=== PATIENT | male | born 1945 | race Caucasian/White ===

== ENCOUNTER → 2016-09-21 | Outpatient (CLI) | payer MEDICARE ==
[2016-09-21 10:57] LABS: ALT 26 U/L (21-72); AST 27 U/L (17-59); Alkaline Phosphatase 58 U/L (38-126); Anion Gap 8 mmol/L; Blood Urea Nitrogen 17 mg/dL (9-20); Calcium 9.4 mg/dL (8.4-10.2); Carbon Dioxide 31 mmol/L (22-30); Chloride 99 mmol/L (98-107); Cholesterol 179 mg/dL (<200); Glucose 89 mg/dL (74-99); HDL Cholesterol 67 mg/dL (40-60); Non-African American GFR(MDRD) >60 (>60 ml/min/1.73 sqM); Potassium 4.2 mmol/L (3.5-5.1); Sodium 138 mmol/L (137-145); Total Bilirubin 0.9 mg/dL (0.2-1.3); Total Protein 7.3 g/dL (6.3-8.2); Triglycerides 78 mg/dL (<150)
== END | disposition home or self-care (01) ==
LOC: LABWHC1 09:21
PROVIDERS: ATTEND Internal Medicine Interventional Cardiology
DX: E78.5 Hyperlipidemia, unspecified (principal); E55.9 Vitamin D deficiency, unspecified
CPT/HCPCS: 36415; 80053; 80061; 82306; 84443

== ENCOUNTER → 2017-07-03 | Outpatient (CLI) | payer MEDICARE ==
--- NOTE | 2017-07-03 12:16 | XR ---
EXAMINATION TYPE: XR chest 2V DATE OF EXAM: 07/03/2017 COMPARISON: Chest x-ray July 01, 2014 HISTORY: Cough for 2 weeks. TECHNIQUE: Frontal and lateral views of the chest are obtained. FINDINGS: There is chronic minimal change with small stable calcified right lower lobe nodule or gra nuloma. There is no focal air space opacity, pleural effusion, or pneumothorax seen. The cardiac eric houette size is within normal limits with atherosclerotic change in aortic knob. There is old fractur e left anterolateral fourth and fifth ribs redemonstrated. IMPRESSION: Chronic changes without suspicious acute pulmonary process.
== END | disposition home or self-care (01) ==
LOC: RADXRYALE 11:57
PROVIDERS: ATTEND Physician Assistant Medical
DX: R05 Cough (principal)
CPT/HCPCS: 71046

== ENCOUNTER 2017-11-17 09:48 | Emergency (ER) | payer MEDICARE ==
[2017-11-17 09:57] VITALS: TEMP 97.7
--- NOTE | 2017-11-17 10:06 | ED ---
General Adult HPI - General Chief complaint: Back Pain/Injury Stated complaint: Back/Chest Pain Time Seen by Provider: 11/17/17 09:50 Source: patient, EMS, RN notes reviewed Mode of arrival: EMS Limitations: no limitations - History of Present Illness Initial comments: This is a 71-year-old male presents emergency Department with no significant past medical history. Patient comes in because since Sunday he's been having some left trapezius and shoulder pain and he states it was constant. Patient states after that he started having pain from the bases neck down through the middle of his back between his shoulder blades. Patient denies any chest pain. Patient states after he took an aspirin yesterday at about 9:00 last night he has had no pain since. Patient went to urgent care and urgent care got blood pressures bilaterally that were not equal and so they were concerned for aortic aneurysm and sent to the emergency department. Patient denies any recent fever chills or cough. Patient denies any headache patient denies numbness weakness. Patient denies lightheadedness dizziness or near syncopal episode. Patient denies any abdominal pain patient denies nausea vomiting diarrhea - Related Data Home Medications Medication Instructions Recorded Confirmed Ascorbic Acid [Vitamin C] 500 mg PO DAILY 11/17/17 11/17/17 Aspirin EC [Ecotrin] 325 mg PO HS 11/17/17 11/17/17 Garlic 1 tab PO DAILY 11/17/17 11/17/17 Lecithin, Soy [Lecithin] 400 mg PO DAILY 11/17/17 11/17/17 Multivitamins, Thera [Multivitamin 1 tab PO DAILY 11/17/17 11/17/17 (formulary)] Vitamin B Complex 1 cap PO DAILY 11/17/17 11/17/17 Vitamin E 100 unit PO DAILY 11/17/17 11/17/17 Allergies Allergy/AdvReac Type Severity Reaction Status Date / Time Penicillins Allergy Unknown Verified 11/17/17 12:04 Sulfa (Sulfonamide Allergy Unknown Verified 11/17/17 12:04 Antibiotics) Review of Systems ROS Statement: Those systems with pertinent positive or pertinent negative responses have been documented in the HPI. ROS Other: All systems not noted in ROS Statement are negative. Past Medical History Past Medical History: No Reported History History of Any Multi-Drug Resistant Organisms: None Reported Past Surgical History: No Surgical Hx Reported Past Psychological History: No Psychological Hx Reported Smoking Status: Never smoker Past Alcohol Use History: None Reported Past Drug Use History: None Reported General Exam - General Exam Comments Initial Comments: GENERAL: Patient is well-developed and well-nourished. Patient is nontoxic and well- hydrated and is in no acute distress. ENT: Neck is soft and supple. No significant lymphadenopathy is noted. Oropharynx is clear. Moist mucous membranes. Neck has full range of motion without eliciting any pain. EYES: The sclera were anicteric and conjunctiva were pink and moist. Extraocular movements were intact and pupils were equal round and reactive to light. Eyelids were unremarkable. PULMONARY: Unlabored respirations. Good breath sounds bilaterally. No audible rales rhonchi or wheezing was noted. CARDIOVASCULAR: There is a regular rate and rhythm without any murmurs gallops or rubs. ABDOMEN: Soft and nontender with normal bowel sounds. No palpable organomegaly was noted. There is no palpable pulsatile mass. SKIN: Skin is clear with no lesions or rashes and otherwise unremarkable. NEUROLOGIC: Patient is alert and oriented x3. Cranial nerves II through XII are grossly intact. Motor and sensory are also intact. Normal speech, volume and content. Symmetrical smile. MUSCULOSKELETAL: Normal extremities with adequate strength and full range of motion. No lower extremity swelling or edema. No calf tenderness. LYMPHATICS: No significant lymphadenopathy is noted PSYCHIATRIC: Normal psychiatric evaluation. Normal interpersonal interactions appears functionally intact in deals appropriately with others. No signs of depression. No signs of anxiety. Limitations: no limitations Course Vital Signs 11/17/17 11/17/17 11/17/17 09:50 10:30 11:00 Temperature 97.7 F Pulse Rate 53 L 58 L 51 L Respiratory 20 20 20 Rate Blood Pressure 157/94 155/76 152/77 O2 Sat by Pulse 100 98 98 Oximetry Medical Decision Making - Medical Decision Making We did blood pressures bilaterally as did EMS and blood pressures were equal bilaterally. EKG shows sinus bradycardia 54 bpm AR interval 138 QRS is 96 Q-T intervals 444 QTC is 421 per patient's EKG shows no ST segment elevation or depression or T wave abnormalities are noted. Patient was asymptomatic throughout his ED stay. Patient never had chest pain all week or throughout his visit here. - Lab Data Result diagrams: 11/17/17 10:00 11/17/17 10:00 Lab Results 0611/17/17 11/17/17 Range/Units 10:00 10:00 10:00 WBC 6.2 (3.8-10.6) k/uL RBC 4.82 (4.30-5.90) m/uL Hgb 13.8 (13.0-17.5) gm/dL Hct 41.1 (39.0-53.0) % MCV 85.3 (80.0-100.0) fL MCH 28.7 (25.0-35.0) pg MCHC 33.6 (31.0-37.0) g/dL RDW 13.4 (11.5-15.5) % Plt Count 223 (150-450) k/uL Neutrophils % 65 % Lymphocytes % 26 % Monocytes % 5 % Eosinophils % 2 % Basophils % 1 % Neutrophils # 4.0 (1.3-7.7) k/uL Lymphocytes # 1.6 (1.0-4.8) k/uL Monocytes # 0.3 (0-1.0) k/uL Eosinophils # 0.1 (0-0.7) k/uL Basophils # 0.0 (0-0.2) k/uL PT (9.0-12.0) sec INR (<1.2) APTT (22.0-30.0) sec Sodium 137 (137-145) mmol/L Potassium 4.3 (3.5-5.1) mmol/L Chloride 98 (98-107) mmol/L Carbon Dioxide 29 (22-30) mmol/L Anion Gap 10 mmol/L BUN 15 (9-20) mg/dL Creatinine 0.77 (0.66-1.25) mg/dL Est GFR (CKD-EPI)AfAm >90 (>60 ml/min/1.73 sqM) Est GFR (CKD-EPI)NonAf >90 (>60 ml/min/1.73 sqM) Glucose 96 (74-99) mg/dL Calcium 9.2 (8.4-10.2) mg/dL Magnesium 2.0 (1.6-2.3) mg/dL Total Bilirubin 0.5 (0.2-1.3) mg/dL AST 31 (17-59) U/L ALT 29 (21-72) U/L Alkaline Phosphatase 55 (38-126) U/L Total Creatine Kinase 89 (55-170) U/L CK-MB (CK-2) 1.4 (0.0-2.4) ng/mL CK-MB (CK-2) Rel Index 1.6 Troponin I <0.012 (0.000-0.034) ng/mL Total Protein 6.4 (6.3-8.2) g/dL Albumin 4.1 (3.5-5.0) g/dL 11/17/17 Range/Units 10:00 WBC (3.8-10.6) k/uL RBC (4.30-5.90) m/uL Hgb (13.0-17.5) gm/dL Hct (39.0-53.0) % MCV (80.0-100.0) fL MCH (25.0-35.0) pg MCHC (31.0-37.0) g/dL RDW (11.5-15.5) % Plt Count (150-450) k/uL Neutrophils % % Lymphocytes % % Monocytes % % Eosinophils % % Basophils % % Neutrophils # (1.3-7.7) k/uL Lymphocytes # (1.0-4.8) k/uL Monocytes # (0-1.0) k/uL Eosinophils # (0-0.7) k/uL Basophils # (0-0.2) k/uL PT 10.1 (9.0-12.0) sec INR 1.0 (<1.2) APTT 24.9 (22.0-30.0) sec Sodium (137-145) mmol/L Potassium (3.5-5.1) mmol/L Chloride (98-107) mmol/L Carbon Dioxide (22-30) mmol/L Anion Gap mmol/L BUN (9-20) mg/dL Creatinine (0.66-1.25) mg/dL Est GFR (CKD-EPI)AfAm (>60 ml/min/1.73 sqM) Est GFR (CKD-EPI)NonAf (>60 ml/min/1.73 sqM) Glucose (74-99) mg/dL Calcium (8.4-10.2) mg/dL Magnesium (1.6-2.3) mg/dL Total Bilirubin (0.2-1.3) mg/dL AST (17-59) U/L ALT (21-72) U/L Alkaline Phosphatase (38-126) U/L Total Creatine Kinase (55-170) U/L CK-MB (CK-2) (0.0-2.4) ng/mL CK-MB (CK-2) Rel Index Troponin I (0.000-0.034) ng/mL Total Protein (6.3-8.2) g/dL Albumin (3.5-5.0) g/dL Disposition Clinical Impression: Thoracic back pain Disposition: HOME SELF-CARE Condition: Good Instructions: Acute Low Back Pain (ED) Is patient prescribed a controlled substance at d/c from ED?: No Referrals: Oscar Harper DO [Primary Care Provider] - 1-2 days Time of Disposition: 12:15
[2017-11-17 10:16] LABS: Basophils % (A) 1 %; Eosinophils # (A) 0.1 k/uL (0-0.7); Eosinophils % (A) 2 %; HCT 41.1 % (39.0-53.0); HGB 13.8 gm/dL (13.0-17.5); Lymphocytes # (A) 1.6 k/uL (1.0-4.8); Lymphocytes % (A) 26 %; MCH 28.7 pg (25.0-35.0); MCHC 33.6 g/dL (31.0-37.0); MCV 85.3 fL (80.0-100.0); Mean Platelet Volume 6.9; Monocytes # (A) 0.3 k/uL (0-1.0); Monocytes % (A) 5 %; Neutrophils % (A) 65 %; Platelet Count 223 k/uL (150-450); RBC 4.82 m/uL (4.30-5.90); RDW 13.4 % (11.5-15.5); WBC 6.2 k/uL (3.8-10.6)
[2017-11-17 10:28] LABS: ALT 29 U/L (21-72); AST 31 U/L (17-59); Albumin 4.1 g/dL (3.5-5.0); Alkaline Phosphatase 55 U/L (38-126); Anion Gap 10 mmol/L; Blood Urea Nitrogen 15 mg/dL (9-20); Calcium 9.2 mg/dL (8.4-10.2); Carbon Dioxide 29 mmol/L (22-30); Chloride 98 mmol/L (98-107); Glucose 96 mg/dL (74-99); Potassium 4.3 mmol/L (3.5-5.1); Sodium 137 mmol/L (137-145); Total Bilirubin 0.5 mg/dL (0.2-1.3); Total Protein 6.4 g/dL (6.3-8.2)
[2017-11-17 10:29] LABS: Partial Thromboplastin Time 24.9 sec (22.0-30.0); Prothrombin Time 10.1 sec (9.0-12.0)
[2017-11-17 10:49] LABS: Creatine Kinase 89 U/L (55-170)
[2017-11-17 11:02] LABS: Creatine Kinase MB 1.4 ng/mL (0.0-2.4); Troponin I <0.012 ng/mL (0.000-0.034)
--- NOTE | 2017-11-17 11:34 | CT ---
EXAMINATION TYPE: CT angio thor/abd pel aorta DATE OF EXAM: 11/17/2017 COMPARISON: NONE HISTORY: Upper back pain, radiating down Lt arm CT DLP: 1171.6 mGycm. Automated Exposure Control for Dose Reduction was Utilized. CONTRAST: CT scan of the thorax, abdomen and pelvis is performed without and with IV Contrast, patient injected with 100 mL of Isovue 370. Three-dimensional reconstructions performed on an alternate workstation. FINDINGS: LUNGS: The lungs are grossly clear, there is no concerning parenchymal mass or nodule identified. Ca lcified nodule present in the right lower lobe, calcified right hilar, mediastinal nodes are present. There is no pleural effusion or pneumothorax seen. The tracheobronchial tree is patent. MEDIASTINUM: There are no greater than 1 cm hilar or mediastinal lymph nodes. No pericardial effusi on is seen. Aorta shows no luminal filling defect to suggest embolism or dissection, there is a normal caliber. L IVER/GB: No significant abnormality is appreciated. PANCREAS: No significant abnormality is seen. SPLEEN: Calcifications compatible with old granulomatous disease. ADRENALS: No significant abnormality is seen. KIDNEYS: No significant abnormality is seen. BOWEL: No significant abnormality is seen. GENITAL ORGANS: No gross abnormality seen. LYMPH NODES: No greater than 1cm abdominal or pelvic lymph nodes are appreciated. OSSEOUS STRUCTURES: Degenerative disc changes in the lumbar spine. OTHER: No significant additional a bnormality is seen. IMPRESSION: Normal aorta
[2017-11-17 12:26] VITALS: BP 155/91; PULSE 56; RESP 18
== END 2017-11-17 12:25 | disposition home or self-care (01) ==
LOC: EC 09:48
DX: M54.6 Pain in thoracic spine (principal); R00.1 Bradycardia, unspecified; Z79.82 Long term (current) use of aspirin; Z79.899 Other long term (current) drug therapy; Z88.0 Allergy status to penicillin; Z88.2 Allergy status to sulfonamides
CPT/HCPCS: 36415; 93005; 80053; 82550; 82553; 83735; 84484; 85025; 85610; 85730; 71275; 74174; 99284; Q9967

== ENCOUNTER → 2018-06-25 | Outpatient (CLI) | payer MEDICARE | END | disposition home or self-care (01) | LOC: RADUSWWP 11:47 | PROVIDERS: ATTEND Family Medicine | DX: T33.832A Superficial frostbite of left toe(s), initial encounter (principal); R09.89 Other specified symptoms and signs involving the circulatory and respiratory systems | CPT/HCPCS: 93923 ==

== ENCOUNTER → 2018-07-05 | Outpatient (CLI) | payer MEDICARE ==
[2018-07-05 18:04] LABS: ALT 29 U/L (10-49); AST 29 U/L (14-35); Albumin/Globulin Ratio 2.39 (1.60-3.17); Alkaline Phosphatase 61 U/L (41-126); Calcium 9.1 mg/dL (8.7-10.3); Carbon Dioxide 29.7 mmol/L (21.6-31.8); Chloride 104 mmol/L (96-109); Cholesterol 137 mg/dL (0-200); Globulin 1.8 g/dL (1.6-3.3); Glucose 89 mg/dL (70-110); Potassium 4.1 mmol/L (3.5-5.5); Sodium 140 mmol/L (135-145); Total Bilirubin 0.7 mg/dL (0.2-1.2); Total Protein 6.1 g/dL (6.2-8.2); Triglycerides <50.0 mg/dL (0.0-149.0); VLDL Calculation 9.98 mg/dL (5.00-40.00)
== END | disposition home or self-care (01) ==
LOC: LABWHC1 10:30
PROVIDERS: ATTEND Internal Medicine Clinical Cardiac Electrophysiology
DX: E78.5 Hyperlipidemia, unspecified (principal); R07.9 Chest pain, unspecified; R53.83 Other fatigue
CPT/HCPCS: 36415; 80053; 80061; 84443

== ENCOUNTER → 2018-09-26 | Outpatient (CLI) | payer MEDICARE ==
--- NOTE | 2018-09-26 09:50 | XR ---
EXAMINATION TYPE: XR lumbosacral spine min 4V DATE OF EXAM: 09/26/2018 CLINICAL HISTORY: Chronic low back pain. TECHNIQUE: Frontal, lateral, and oblique images of the lumbar spine are obtained. COMPARISON: CTA aorta November 17, 2017 FINDINGS: There are 5 lumbar type vertebral bodies redemonstrated. The lumbar spine shows persistent levoconvex scoliosis centered at L3 level without evidence of acute fracture or dislocation. Vertebr al body heights remain within normal limits. There is persistent grade 1 retrolisthesis L3 on L4. Th ere is moderate disc space narrowing with vacuum disc phenomenon L3-L4 level redemonstrated. There is moderate disc space narrowing with vacuum disc phenomenon L5-S1 level. Prominent disc space S1-S2 le indigo is again seen. The oblique images appear within normal limits. Facet arthropathy lower lumbar sp ine is present. The overlying soft tissue appears unremarkable. IMPRESSION: As above. No significant change from 2018 CT.
== END ==
LOC: RADXRYALE 09:05
PROVIDERS: ATTEND Physician Assistant Medical
DX: M99.73 Connective tissue and disc stenosis of intervertebral foramina of lumbar region (principal); M99.74 Connective tissue and disc stenosis of intervertebral foramina of sacral region; M43.16 Spondylolisthesis, lumbar region; M46.96 Unspecified inflammatory spondylopathy, lumbar region; M41.86 Other forms of scoliosis, lumbar region
CPT/HCPCS: 72110

== ENCOUNTER 2019-07-10 08:33 | Day surgery (SDC) | payer MEDICARE ==
[2019-07-08 08:24] VITALS: BMI 26.0
[~2019-07-10 08:33] MED LIST: LACTATED RINGERS 1,000 ML IV SCH; LIDOCAINE 1% 20 ML VIAL (10MG/ML) FOR IV START INTRADERMA PRN
[2019-07-10 08:58] VITALS: RESP 16; TEMP 97.2
[2019-07-10] MEDS ORDERED: PROPOFOL 10 MG/ML 20 ML VIAL IV ONE (09:27)
[2019-07-10] MEDS ORDERED: LIDOCAINE 1% INJ 10MG/ML (20 ML MDV) ONE (09:27)
--- NOTE | 2019-07-10 10:21 | P.PCN ---
Date of Procedure: 07/10/19 Description of Procedure: BRIEF HISTORY: Patient is a pleasant 73-year-old male who presents for outpatient colonoscopy for screening for malignant neoplasm colon. Last colonoscopy approximately 10 years ago. Denies any change in bowel habits, blood per rectum or family history of colon cancer. PROCEDURE PERFORMED: Colonoscopy incomplete/aborted. PREOPERATIVE DIAGNOSIS: Screening for malignant neoplasm of the colon, last colonoscopy 10 years ago. ESTIMATED BLOOD LOSS: Minimal. IV sedation per Anesthesia. PROCEDURE: After informed consent was obtained, the patient, was brought into the endoscopy unit. IV sedation was administered by Anesthesia under continuous monitoring. Digital rectal examination was normal. Initially the Olympus CF-190 flexible video colonoscope was then inserted in the rectum, gradually advanced to the hepatic flexure. Prep for the colonoscopy was excellent. The patient however has a very dilated and redundant colon with significant looping of the endoscope. Multiple techniques were used to try to complete the colonoscopy including external pressure, stiffening of the endoscope, repositioning the patient in a supine position however these were unsuccessful. Mucosa of the transverse colon, descending colon, sigmoid colon and rectum did appear normal. Retroflexion was performed in the rectum and no lesions were seen. The patient tolerated the procedure well. IMPRESSION: Normal-appearing colon from the rectum to the hepatic flexure. Redundant, dilated colon prohibiting completion of the colonoscopy. RECOMMENDATIONS: Findings of this examination were discussed with the patient and his . Okay to resume diet. Okay to resume medications. Would recommend x-ray abdomen with barium enema for visualization of the right colon.
[2019-07-10 10:35] VITALS: BP 119/55; PULSE 75
== END 2019-07-10 10:52 | disposition home or self-care (01) ==
LOC: ORWHC2ENDO 08:33
PROVIDERS: ATTEND Internal Medicine
DX: Z12.11 Encounter for screening for malignant neoplasm of colon (principal); Q43.8 Other specified congenital malformations of intestine; Z53.8 Procedure and treatment not carried out for other reasons; Z79.82 Long term (current) use of aspirin; Z88.0 Allergy status to penicillin; Z88.2 Allergy status to sulfonamides
CPT/HCPCS: J2001; J2704; G0121; 45378

== ENCOUNTER → 2019-07-29 | Outpatient (CLI) | payer MEDICARE ==
--- NOTE | 2019-07-29 12:19 | FL ---
EXAMINATION TYPE: FL barium enema DATE OF EXAM: 07/29/2019 COMPARISON: NONE HISTORY: Incomplete colonoscopy at an outside facility approximately 2 weeks ago. TECHNIQUE: A single contrast barium enema study is performed. 1 minute and 30 seconds of fluoroscopy was utilized with 56 images saved. FINDINGS: Practical Nurse Clinical Coordinator view of the abdomen shows overall non-obstructive bowel gas pattern. Mild dextroscol iosis and moderate degenerative changes of the lumbar spine. No evidence of any mass or polyp, obstructing or constricting lesion throughout the colon. No signif icant diverticular disease is noted. Appendix was filled and appeared normal. The terminal ileum was refluxed and appears within normal l imits. IMPRESSION: Unremarkable barium enema study.
== END | disposition home or self-care (01) ==
LOC: RADFLMAIN 09:24
PROVIDERS: ATTEND Physician Assistant Medical
DX: R93.3 Abnormal findings on diagnostic imaging of other parts of digestive tract (principal)
CPT/HCPCS: 74270

== ENCOUNTER → 2021-02-21 | Outpatient (CLI) | payer MEDICARE ==
--- NOTE | 2021-02-21 12:18 | XR ---
EXAMINATION TYPE: XR wrist complete 3 views LT, XR knee complete 3 views LT DATE OF EXAM: 02/21/2021 COMPARISON: NONE HISTORY: 75-year-old male [id number] LT WRIST PAIN,LT KNEE PAIN FINDINGS: Left wrist: Moderate degenerative joint space narrowing and marginal spurring with subchondral sclerosis of the f irst CMC joint. The radiocarpal and distal radioulnar joint as well as the midcarpal compartment appe ar intact. No acute fracture, subluxation, or dislocation seen. There are submillimeter focus of exte rnal artifact or retained metallic foreign body debris along the radial aspect of the proximal second finger. Left knee: There is tricompartmental degenerative spurring. Weightbearing view could better assess the degree of cartilage and joint space loss. Suspect a small 4 mm loose body in the suprapatellar pouch. Extensor mechanism appears intact. Small knee joint effusion likely reactive. No acute fracture, subluxation, or dislocation seen. IMPRESSION: Left wrist: 1. Moderate OA at the basal joint of the thumb. 2. A 2 mm focus of either external artifact versus retained metallic foreign body material within the radial sided soft tissues of the proximal index finger. 3 No acute osseous abnormality seen. Left knee: 4. Tricompartmental osteoarthrosis. A weightbearing view could better assess the degree of cartilage and joint space narrowing. 5. No acute osseous abnormality seen.
== END | disposition home or self-care (01) ==
LOC: RADXRYALE 09:25
PROVIDERS: ATTEND Physician Assistant Medical
DX: M19.042 Primary osteoarthritis, left hand (principal); M17.12 Unilateral primary osteoarthritis, left knee

== ENCOUNTER 2021-07-12 23:46 | Emergency (ER) | payer MEDICARE ==
[2021-07-12 23:59] VITALS: BP 152/82; PULSE 50; RESP 18; TEMP 97.8
--- NOTE | 2021-07-13 00:36 | ED ---
General Adult HPI - General Chief complaint: Extremity Problem,Nontraumatic Stated complaint: Lt Leg Pain Time Seen by Provider: 07/13/21 00:05 Source: patient, RN notes reviewed Mode of arrival: ambulatory - History of Present Illness Initial comments: 75-year-old male presents to the emergency department for evaluation of left calf pain, onset 3 days prior to arrival. 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 Patient states the pain is worsened when walking and when his foot is in a flexed position. He describes the pain as intense, sharp, and cramping. States pain is alleviated with rest several hours after its onset. He takes aspirin daily. Denies fever, chills, chest pain, shortness of breath, difficulty breathing, nausea, vomiting, diarrhea, injury, and lower extremity swelling. - Related Data Home Medications Medication Instructions Recorded Confirmed Multivitamins, Thera [Multivitamin 1 tab PO DAILY 11/17/17 07/10/19 (formulary)] Aspirin [Adult Low Dose Aspirin EC] 81 mg PO DAILY 07/08/19 07/10/19 methylPREDNISolone [Medrol Dose 4 mg PO DIRECTED 07/08/19 07/10/19 Pack] Allergies Allergy/AdvReac Type Severity Reaction Status Date / Time Penicillins Allergy Unknown Verified 07/12/21 23:59 Childhood Sulfa (Sulfonamide Allergy Unknown Verified 07/12/21 23:59 Antibiotics) Childhood Review of Systems ROS Statement: Those systems with pertinent positive or pertinent negative responses have been documented in the HPI. ROS Other: All systems not noted in ROS Statement are negative. Past Medical History Past Medical History: GERD/Reflux, Osteoarthritis (OA) Additional Past Medical History / Comment(s): recent steroids for "back issues", History of Any Multi-Drug Resistant Organisms: None Reported Past Surgical History: No Surgical Hx Reported Additional Past Surgical History / Comment(s): colonoscopy, Past Anesthesia/Blood Transfusion Reactions: No Reported Reaction Past Psychological History: No Psychological Hx Reported Smoking Status: Never smoker Past Alcohol Use History: Rare Past Drug Use History: None Reported - Past Family History Mother Family Medical History: No Reported History General Exam Limitations: no limitations (Well-developed, well-nourished male in no acute distress. Temperature 97.8, pulse 50, respirations 18, blood pressure 152/82, pulse ox 98% on room air.) General appearance: alert, in no apparent distress Neck exam: Present: normal inspection, full ROM. Absent: tenderness, lymphadenopathy Respiratory exam: Present: normal lung sounds bilaterally. Absent: respiratory distress, wheezes, rales, rhonchi, stridor Cardiovascular Exam: Present: bradycardia (Patient reports heart rate is normal ly 50-65.), normal heart sounds GI/Abdominal exam: Present: soft, normal bowel sounds. Absent: distended, tenderness, guarding, rebound, rigid Left Upper Leg exam: Present: normal inspection, full ROM. Absent: tenderness, swelling Knee exam: Present: normal inspection, full ROM. Absent: tenderness, swelling, deformity Lower Leg exam: Present: normal inspection (symptoms have resolved but describes +rose's sign during episodes of pain), full ROM. Absent: tenderness, swelling, erythema, Homans' sign Ankle exam: Present: normal inspection, full ROM. Absent: tenderness, swelling Foot/Toe exam: Present: normal inspection, full ROM. Absent: tenderness, swelling Neurovascular tendon exam: Present: no vascular compromise. Absent: pulse deficit, abnormal cap refill, motor deficit, sensory deficit, pallor Right Upper Leg exam: Present: normal inspection, full ROM. Absent: tenderness, swelling Knee exam: Present: normal inspection, full ROM. Absent: tenderness, swelling, deformity Lower Leg exam: Present: normal inspection (bilateral lower extremities symmetrical), full ROM. Absent: tenderness, swelling, erythema, Homans' sign Ankle exam: Present: normal inspection, full ROM Foot/Toe exam: Present: normal inspection, full ROM Neurovascular tendon exam: Present: no vascular compromise. Absent: pulse deficit, abnormal cap refill, motor deficit, sensory deficit, pallor Neurological exam: Present: alert, oriented X3, CN II-XII intact Psychiatric exam: Present: normal affect, normal mood Skin exam: Present: warm, dry, intact, normal color. Absent: rash Course Vital Signs 07/12/21 23:56 Temperature 97.8 F Pulse Rate 50 L Respiratory 18 Rate Blood Pressure 152/82 O2 Sat by Pulse 98 Oximetry Medical Decision Making - Medical Decision Making 75-year-old male with no significant past medical history presents to the emergency department for evaluation of left calf pain. Upon exam, patient is well-appearing and in no acute distress. He is not experiencing any chest pain or shortness of breath. Lower extremities are symmetrical; no edema or erythema present. Neurovascular status is intact. Negative Homans sign. Patient is not having any discomfort at this time. Doppler study was negative for DVT. Laboratory studies were reviewed and are unremarkable. Discussed that this is likely muscle pain related to hours of work. Encouraged gentle range of motion and stretching. Suggested alternating ice and heat. Recommended Tylenol or Motrin for discomfort if needed. Follow-up care was reviewed patient in spouse. Questions answered they verbalize understanding and agree with this plan. Return parameters were discussed in detail. This patient's care was discussed with my attending . - Lab Data Result diagrams: 07/13/21 01:00 07/13/21 01:00 Lab Results 07/13/21 07/13/21 07/13/21 Range/Units 01:00 01:00 01:00 WBC 7.6 (3.8-10.6) k/uL RBC 4.66 (4.30-5.90) m/uL Hgb 13.8 (13.0-17.5) gm/dL Hct 41.4 (39.0-53.0) % MCV 88.9 (80.0-100.0) fL MCH 29.6 (25.0-35.0) pg MCHC 33.3 (31.0-37.0) g/dL RDW 12.9 (11.5-15.5) % Plt Count 195 (150-450) k/uL MPV 7.7 Neutrophils % 56 % Lymphocytes % 33 % Monocytes % 6 % Eosinophils % 3 % Basophils % 1 % Neutrophils # 4.2 (1.3-7.7) k/uL Lymphocytes # 2.5 (1.0-4.8) k/uL Monocytes # 0.4 (0-1.0) k/uL Eosinophils # 0.2 (0-0.7) k/uL Basophils # 0.1 (0-0.2) k/uL D-Dimer 0.29 (<0.60) mg/L FEU Sodium 135 L (137-145) mmol/L Potassium 4.2 (3.5-5.1) mmol/L Chloride 102 (98-107) mmol/L Carbon Dioxide 27 (22-30) mmol/L Anion Gap 6 mmol/L BUN 21 H (9-20) mg/dL Creatinine 0.94 (0.66-1.25) mg/dL Est GFR (CKD-EPI)AfAm >90 (>60 ml/min/1.73 sqM) Est GFR (CKD-EPI)NonAf 79 (>60 ml/min/1.73 sqM) Glucose 92 (74-99) mg/dL Calcium 8.8 (8.4-10.2) mg/dL Total Bilirubin 0.5 (0.2-1.3) mg/dL AST 26 (17-59) U/L ALT 17 (4-49) U/L Alkaline Phosphatase 57 (38-126) U/L Total Protein 6.8 (6.3-8.2) g/dL Albumin 4.0 (3.5-5.0) g/dL - Radiology Data Radiology results: report reviewed Venous Doppler study of the left lower extremity was obtained. Report was reviewed in its entirety. Impression per Dr. cierra Mg is left leg negative for DVT. Disposition Clinical Impression: Pain of left calf Disposition: HOME SELF-CARE Condition: Stable Instructions (If sedation given, give patient instructions): Leg Pain (ED) Additional Instructions: Gentle stretching of affected extremity. Alternate heat and ice as needed. May take motrin or tylenol for pain. Follow up with your PCP for a recheck this week. Return to the Emergency Department with any new, worsening, or concerning symptoms. Is patient prescribed a controlled substance at d/c from ED?: No Referrals: Oscar Harper DO [Primary Care Provider] - 1-2 days
[2021-07-13 01:08] LABS: Basophils # (A) 0.1 k/uL (0-0.2); Basophils % (A) 1 %; Eosinophils # (A) 0.2 k/uL (0-0.7); Eosinophils % (A) 3 %; HCT 41.4 % (39.0-53.0); HGB 13.8 gm/dL (13.0-17.5); Lymphocytes # (A) 2.5 k/uL (1.0-4.8); Lymphocytes % (A) 33 %; MCH 29.6 pg (25.0-35.0); MCHC 33.3 g/dL (31.0-37.0); MCV 88.9 fL (80.0-100.0); Mean Platelet Volume 7.7; Monocytes # (A) 0.4 k/uL (0-1.0); Monocytes % (A) 6 %; Neutrophils # (A) 4.2 k/uL (1.3-7.7); Neutrophils % (A) 56 %; Platelet Count 195 k/uL (150-450); RBC 4.66 m/uL (4.30-5.90); RDW 12.9 % (11.5-15.5); WBC 7.6 k/uL (3.8-10.6)
[2021-07-13 01:20] LABS: ALT 17 U/L (4-49); AST 26 U/L (17-59); African American GFR (CKD) >90 (>60 ml/min/1.73 sqM); Alkaline Phosphatase 57 U/L (38-126); Anion Gap 6 mmol/L; Blood Urea Nitrogen 21 mg/dL (9-20); Calcium 8.8 mg/dL (8.4-10.2); Carbon Dioxide 27 mmol/L (22-30); Chloride 102 mmol/L (98-107); Glucose 92 mg/dL (74-99); Non-African American GFR(CKD) 79 (>60 ml/min/1.73 sqM); Potassium 4.2 mmol/L (3.5-5.1); Sodium 135 mmol/L (137-145); Total Bilirubin 0.5 mg/dL (0.2-1.3); Total Protein 6.8 g/dL (6.3-8.2)
--- NOTE | 2021-07-13 01:22 | US ---
EXAMINATION TYPE: US venous doppler duplex LE LT DATE OF EXAM: 07/13/2021 1:00 AM COMPARISON: 2015 CLINICAL HISTORY: LLE pain. Patient complains of left calf cramps for 3 days; states they only happen in the afternoon after long hours of work. Patient states he takes aspirin daily. SIDE PERFORMED: Left TECHNIQUE: The lower extremity deep venous system is examined utilizing real time linear array sonog mary with graded compression, doppler sonography and color-flow sonography. VESSELS IMAGED: Common Femoral Vein Deep Femoral Vein Greater Saphenous Vein * Femoral Vein Popliteal Vein Small Saphenous Vein * Proximal Calf Veins (* superficial vessels) PTV's Peroneals Left Leg: Negative for DVT IMPRESSION: No evidence of deep vein thrombosis in the left leg
== END 2021-07-13 02:09 | disposition home or self-care (01) ==
LOC: EC 23:46
DX: M79.662 Pain in left lower leg (principal); K21.9 Gastro-esophageal reflux disease without esophagitis; M19.90 Unspecified osteoarthritis, unspecified site; Z79.82 Long term (current) use of aspirin; Z88.0 Allergy status to penicillin; Z88.2 Allergy status to sulfonamides
CPT/HCPCS: 36415; 80053; 85025; 85379; 99284

== ENCOUNTER → 2021-07-19 | Outpatient (CLI) | payer MEDICARE ==
--- NOTE | 2021-07-19 10:43 | XR ---
EXAMINATION TYPE: XR hand complete RT DATE OF EXAM: 07/19/2021 CLINICAL HISTORY: Pain. TECHNIQUE: Frontal, lateral and oblique images of the right hand are obtained. COMPARISON: None. FINDINGS: There is no acute fracture/dislocation evident in the right hand. Mild to moderate narrowi ng throughout the PIP and DIP joints of the phalanges without significant spurring. Overlying soft ti ssue is unremarkable. IMPRESSION: As above.
== END | disposition home or self-care (01) ==
LOC: RADXRYALE 10:01
PROVIDERS: ATTEND Family Medicine
DX: M25.841 Other specified joint disorders, right hand (principal)

== ENCOUNTER → 2022-01-27 | Outpatient (CLI) | payer MEDICARE ==
--- NOTE | 2022-01-27 20:18 | XR ---
EXAMINATION TYPE: XR knee complete LT DATE OF EXAM: 01/27/2022 3:50 PM INDICATION: Patient age:Male; 76 years old; Reason for study: [id number] LT KNEE PAIN,LT OA; [facility]. COMPARISON: Knee radiograph 02/21/2021. TECHNIQUE: The Left knee(s) was examined in 3 projections. Frontal, lateral and oblique. FINDINGS: There is osteophyte formation of the tibial plateau patella and femoral condyles. There is joint space loss most pronounced in the medial joint. No evidence radiopaque foreign body. No joint e ffusion. No evidence of acute fracture. IMPRESSION: 1. No acute osseous pathology. 2. Severe osteoarthrosis of the knee most pronounced in the patellofemoral and medial knee compartmen t.
== END | disposition home or self-care (01) ==
LOC: RADXRYALE 15:32
PROVIDERS: ATTEND Physician Assistant Medical
DX: M17.12 Unilateral primary osteoarthritis, left knee (principal)

== ENCOUNTER 2024-03-02 09:35 | Emergency (ER) | payer MEDICARE ==
--- NOTE | 2024-03-02 10:04 | XR ---
Left knee HISTORY: Pain following trauma COMPARISON: 01/27/2022. TECHNIQUE: 3 views left knee were obtained. FINDINGS: There is no fracture, dislocation or focal intraosseous abnormality. There is a moderate joint effusion. There is severe narrowing and hypertrophic spurring of the medial and patellofemoral compartments con sistent with severe osteoarthritis. There is mild narrowing of the lateral compartment joint space. IMPRESSION: 1. Joint effusion. 2. Tricompartment osteoarthritis essentially unchanged compared to the prior study. There is severe o steoarthritis in the medial and patellofemoral compartments. 3. No acute fracture. [facility], Workstation: [facility], 03/02/2024 10:02 AM
--- NOTE | 2024-03-02 10:07 | ED ---
General Adult HPI - General Chief complaint: Extremity Injury, Lower Stated complaint: L knee pain/swelling Time Seen by Provider: 03/02/24 09:38 Source: patient, RN notes reviewed, old records reviewed Mode of arrival: ambulatory Limitations: no limitations - History of Present Illness Initial comments: 78-year-old male with left knee pain and swelling after dropping and electric motor onto the knee. This occurred yesterday morning. Patient has had pain with ambulation and swelling to the knee. Denies blood thinners. Denies fever. No other injury. - Related Data Home Medications Medication Instructions Recorded Confirmed Multivitamins, Thera [Multivitamin 1 tab PO DAILY 11/17/17 07/10/19 (formulary)] Aspirin [Adult Low Dose Aspirin EC] 81 mg PO DAILY 07/08/19 07/10/19 methylPREDNISolone [Medrol Dose 4 mg PO DIRECTED 07/08/19 07/10/19 Pack] Allergies Allergy/AdvReac Type Severity Reaction Status Date / Time Penicillins Allergy Unknown Verified 03/02/24 09:40 Childhood Sulfa (Sulfonamide Allergy Unknown Verified 03/02/24 09:40 Antibiotics) Childhood Review of Systems ROS Statement: Those systems with pertinent positive or pertinent negative responses have been documented in the HPI. ROS Other: All systems not noted in ROS Statement are negative. Past Medical History Past Medical History: GERD/Reflux, Osteoarthritis (OA) Additional Past Medical History / Comment(s): recent steroids for "back issues", History of Any Multi-Drug Resistant Organisms: None Reported Past Surgical History: No Surgical Hx Reported Additional Past Surgical History / Comment(s): colonoscopy, Past Anesthesia/Blood Transfusion Reactions: No Reported Reaction Past Psychological History: No Psychological Hx Reported Smoking Status: Never smoker Past Alcohol Use History: Rare Past Drug Use History: None Reported - Past Family History Mother Family Medical History: No Reported History General Exam Limitations: no limitations General appearance: alert, in no apparent distress Head exam: Present: atraumatic, normocephalic Eye exam: Present: normal appearance, PERRL Neck exam: Present: normal inspection Respiratory exam: Present: normal lung sounds bilaterally. Absent: respiratory distress Cardiovascular Exam: Present: regular rate, normal rhythm GI/Abdominal exam: Present: soft. Absent: distended, tenderness, guarding Extremities exam: Present: joint swelling (Left knee effusion, no erythema no gross deformity, distal pulses 2+). Absent: pedal edema Neurological exam: Present: alert, oriented X3, CN II-XII intact. Absent: motor sensory deficit Psychiatric exam: Present: normal affect, normal mood Skin exam: Present: warm, dry Course Vital Signs 03/02/24 09:36 Temperature 98 F Pulse Rate 52 L Respiratory 18 Rate Blood Pressure 127/70 O2 Sat by Pulse 100 Oximetry Medical Decision Making - Medical Decision Making Was pt. sent in by a medical professional or institution (EILEEN Diego, [employer], urgent care, hospital, or halfway...) When possible be specific @ -No Did you speak to anyone other than the patient for history (EMS, parent, family, police, friend...)? What history was obtained from this source @ -No Did you review nursing and triage notes (agree or disagree)? Why? @ -I reviewed and agree with nursing and triage notes Were old charts reviewed (outside hosp., previous admission, EMS record, old EKG, old radiological studies, urgent care reports/EKG's, halfway records)? Report findings @ -No old charts were reviewed Differential Musculoskeletal Muscular strain, contusion, ligament sprain, fracture, arthritis, septic arthritis, bursitis, cellulitis, muscle spasm, nerve compression, DVT, arterial occlusion, herpes zoster, electrolyte abnormality, tumor.... This is not meant to be in all inclusive list EKG interpreted by me (3pts min.). @ -As above X-rays interpreted by me (1pt min.). @X-ray of the left knee showing effusion, osteoarthritis, no displaced fracture or dislocation CT interpreted by me (1pt min.). @ -None done U/S interpreted by me (1pt. min.). @ -None done What testing was considered but not performed or refused? (CT, X-rays, U/S, labs)? Why? @ -None What meds were considered but not given or refused? Why? @ -None Did you discuss the management of the patient with other professionals (professionals i.e. EILEEN Diego, [employer], lab, RT, psych nurse, high school social studies tutor, sales engagement manager, teacher, sailing officer, case management specialist)? Give summary @ -No Was smoking cessation discussed for >3mins.? @ -No Was critical care preformed (if so, how long)? @ -No Were there social determinants of health that impacted care today? How? (Homelessness, low income, unemployed, alcoholism, drug addiction, transportation, low edu. Level, literacy, decrease access to med. care, custodial, rehab)? @ -No Was there de-escalation of care discussed even if they declined (Discuss DNR or withdrawal of care, Hospice)? DNR status @ -No What co-morbidities impacted this encounter? (DM, HTN, Smoking, COPD, CAD, Cancer, CVA, ARF, Chemo, Hep., AIDS, mental health diagnosis, sleep apnea, morbid obesity)? @ -None Was patient admitted / discharged? Hospital course, mention meds given and route, prescriptions, significant lab abnormalities, going to OR and other pertinent info. @ -Healthy 78-year-old male presenting with left knee injury after dropping a 60 pound electric motor on the knee. There is knee effusion on exam. No laceration. No erythema. No warmth. Distal pulses intact, x-ray is negative for displaced fracture. Patient will elevate, ice and use Jefe wrap for compression. He will take Tylenol and Motrin for pain. If symptoms persist he should follow-up either with his primary care provider or orthopedics for further evaluation. Undiagnosed new problem with uncertain prognosis? @ -No Drug Therapy requiring intensive monitoring for toxicity (Heparin, Nitro, Insulin, Cardizem)? @ -No Were any procedures done? @ -No Diagnosis/symptom? @ -Knee effusion, knee contusion] Acute, or Chronic, or Acute on Chronic? @Acute Uncomplicated (without systemic symptoms) or Complicated (systemic symptoms)? @ -Default Side effects of treatment? @ -No Exacerbation, Progression, or Severe Exacerbation? @ -No Poses a threat to life or bodily function? How? (Chest pain, USA, CA, pneumonia, PE, COPD, DKA, ARF, appy, cholecystitis, CVA, Diverticulitis, Homicidal, Suicidal, threat to staff... and all critical care pts) @ -No Disposition Clinical Impression: Knee effusion, left, Contusion, knee Disposition: HOME SELF-CARE Condition: Fair Instructions (If sedation given, give patient instructions): Knee Sprain (ED), Knee Pain (ED) Is patient prescribed a controlled substance at d/c from ED?: No Referrals: Jess Flores PAC [Primary Care Provider] - 1-2 days Bubba Nunez MD [STAFF PHYSICIAN] - 1-2 days Time of Disposition: 10:07
[2024-03-02] MEDS: KETOROLAC 15 MG/ML 1 ML VIAL IM STA (10:53)
[2024-03-02 11:09] VITALS: BP 124/79; PULSE 58; RESP 16; TEMP 97.6
== END 2024-03-02 11:10 | disposition home or self-care (01) ==
LOC: EC 09:35
CPT/HCPCS: 96372; 99283

== ENCOUNTER → 2024-11-05 | Outpatient (CLI) | payer MEDICARE ==
[2024-11-05 18:28] LABS: ALT 19 U/L (10-49); AST 24 U/L (14-35); Albumin 4.2 g/dL (3.8-4.9); Albumin/Globulin Ratio 1.91 Ratio (1.60-3.17); Alkaline Phosphatase 56 U/L (41-126); BUN/Creat Ratio 14.56 Ratio (12.00-20.00); Blood Urea Nitrogen 13.1 mg/dL (9.0-27.0); Carbon Dioxide 27.1 mmol/L (21.6-31.8); Chloride 98 mmol/L (96-109); Globulin 2.2 g/dL (1.6-3.3); Glucose 97 mg/dL (70-110); Potassium 4.4 mmol/L (3.5-5.5); Sodium 136 mmol/L (135-145); Total Bilirubin 0.8 mg/dL (0.3-1.2); Total Protein 6.4 g/dL (6.2-8.2)
== END | disposition home or self-care (01) ==
LOC: LABWHC1 11:34
PROVIDERS: ATTEND Internal Medicine Interventional Cardiology
DX: E78.2 Mixed hyperlipidemia (principal)
CPT/HCPCS: 36415; 80053; 80061